=== PATIENT | male | born 1980 | race Two or more races ===

== ENCOUNTER → 2019-02-13 | Emergency (ER) | payer OTHER ==
[~2019-02-13] VITALS: Ht 182.9 cm; Wt 115.2 kg
[~2019-02-13] MED LIST: ADVIL100 MG
== END | disposition left against medical advice (07) ==
LOC: ER 23:31
DX: Z53.20 Procedure and treatment not carried out because of patient's decision for unspecified reasons (principal)

== ENCOUNTER 2020-01-23 14:00 | Emergency (ER) | payer OTHER ==
[~2020-01-23] VITALS: Ht 180.3 cm; Wt 117.9 kg
== END 2020-01-23 20:36 | disposition home or self-care (01) ==
LOC: ER 14:00
DX: G89.11 Acute pain due to trauma (principal); M79.605 Pain in left leg; R60.0 Localized edema

== ENCOUNTER 2020-01-27 00:30 | Emergency (ER) | payer OTHER ==
[~2020-01-27] VITALS: Ht 182.9 cm; Wt 117.9 kg
[2020-01-27] MEDS ORDERED: ZITHROMAX500 MG PO (05:51)
[2020-01-27] MEDS ORDERED: KETO10TA2 PO (05:52)
== END 2020-01-27 06:08 | disposition home or self-care (01) ==
LOC: ER 00:30
DX: R50.9 Fever, unspecified (principal); B96.0 Mycoplasma pneumoniae [M. pneumoniae] as the cause of diseases classified elsewhere; Z03.818 Encounter for observation for suspected exposure to other biological agents ruled out